=== PATIENT | female | born 1990 ===

== ENCOUNTER 2017-06-29 00:41 | Emergency (ER) | payer OTHER ==
[2017-06-29] MEDS: SOD CHLORIDE 0.9% 1,000 ML IV (02:34)
[2017-06-29 02:42] LABS: ADD MAN DIFF? NO
[2017-06-29 02:44] LABS: BASOPHIL # 0.1 10^3/ul (0.0-0.1); BASOPHILS % 1.3 % (0.0-2.0); HEMATOCRIT 42.8 % (37.0-47.0); HEMOGLOBIN 14.5 g/dl (12.0-16.0); LYMPHOCYTES % 22.2 % (15.0-51.0); MEAN CORPUSCULAR HEMOGLOBIN 29.2 pg (29.0-33.0); MEAN CORPUSCULAR HGB CONC 33.9 g/dl (32.0-37.0); MEAN CORPUSCULAR VOLUME 86.1 fl (82.0-101.0); MEAN PLATELET VOLUME 9.9 fl (7.4-10.4); MONOCYTE # 0.5 10^3/ul (0.3-0.9); MONOCYTES % 4.9 % (0.0-11.0); NEUTROPHIL # 6.5 10^3/ul (1.6-7.5); NEUTROPHILS % 71.3 % (39.0-77.0); PLATELET COUNT 480 10^3/UL (140-415); RED BLOOD COUNT 4.97 10^6/ul (4.20-5.40); RED CELL DISTRIBUTION WIDTH 12.6 % (11.5-14.5)
[2017-06-29 02:44] LABS: WHITE BLOOD COUNT 9.1 10^3/ul (4.8-10.8)
[2017-06-29 03:00] LABS: INR 0.96; PROTIME 12.9 Sec (11.9-14.9)
[2017-06-29 03:01] LABS: PARTIAL THROMBOPLASTIN TIME 26.4 Sec (25.0-35.0)
[2017-06-29 03:04] LABS: ALANINE AMINOTRANSFERASE 131 IU/L (13-69); ALBUMIN 5.1 g/dl (3.3-4.9); ALBUMIN/GLOBULIN RATIO 1.64; ALKALINE PHOSPHATASE 105 IU/L (42-121); ANION GAP 27 (8-16); ASPARTATE AMINO TRANSFERASE 89 IU/L (15-46); BLOOD UREA NITROGEN 7 mg/dl (7-20); CALCIUM 9.1 mg/dl (8.4-10.2); CARBON DIOXIDE 25 mmol/L (21-31); CHLORIDE 99 mmol/L (97-110); CREATININE 0.62 mg/dl (0.44-1.00); GLUCOSE 125 mg/dl (70-220); POTASSIUM 3.9 mmol/L (3.5-5.1); SODIUM 147 mmol/L (135-144); TOTAL PROTEIN 8.2 g/dl (6.1-8.1)
[2017-06-29 03:08] LABS: ACETAMINOPHEN < 10.0 ug/ml (10.0-30.0); ETHANOL > 300.0 mg/dl; SALICYLATE < 1.0 mg/dl (5.0-30.0)
== END 2017-06-29 06:01 | disposition home or self-care (01) ==
LOC: E/R 00:41
DX: F10.120 Alcohol abuse with intoxication, uncomplicated (principal); R40.2252 Coma scale, best verbal response, oriented, at arrival to emergency department; R40.2362 Coma scale, best motor response, obeys commands, at arrival to emergency department; R40.2142 Coma scale, eyes open, spontaneous, at arrival to emergency department; R07.9 Chest pain, unspecified
CPT/HCPCS: 36415; 70450; 71045; 80053; 80306; 82962; 85025; 85610; 85730; 93005; 99285-25